=== PATIENT | male | born 1970 | race Two or more races ===

== ENCOUNTER → 2024-02-19 | Outpatient (CLI) | payer MEDICAID, SELFPAY ==
--- NOTE | 2024-02-19 15:07 | XR_ITS ---
Examination: Knee, right , 3 views Technique: Knee AP, lateral, oblique 3 views Date and time of exam: February 19, 2024 1516 hours INDICATIONS: Right knee pain joint popping beginning one month ago, patient fell on the knee one year ago. 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
== END | disposition home or self-care (01) ==
PROVIDERS: PCP Nurse Practitioner Family; Referring Provider Nurse Practitioner Family; Visit Provider Nurse Practitioner Family
DX: M17.11 Unilateral primary osteoarthritis, right knee (principal)
CPT/HCPCS: 73562

== ENCOUNTER 2024-06-11 02:36 | Emergency (ER) | payer MEDICAID, SELFPAY ==
[2024-06-11 02:37] VITALS: BMI 28.1
[2024-06-11 02:49] VITALS: BP 126/95; PULSE 72; RESP 17; TEMP 36.6; O2SAT 97
--- NOTE | 2024-06-11 03:32 | XR_ITS ---
Examination: PA chest single view TECHNIQUE: Upright PA chest single view Exam date and time: June 11, 2024 0339 hours INDICATIONS: Chest pain today FINDINGS: Normal heart size. Lungs are clear. Osseous structures are intact. IMPRESSION: No active disease
--- NOTE | 2024-06-11 03:34 | PD.EDRME ---
Rapid Medical Screening Exam [facility] Arrival date/time: 06/11/24 02:36 53M with history of DM presents to ED with several hours of L-sided coldness, lightheadedness, and sensation of something in throat. Possible SOB, but no pain. Patient denies URI symptoms. Chief Complaint: Dental/Oral/Throat Vital signs: Vital Signs Temperature 97.9 F 06/11/24 02:49 Pulse Rate 72 06/11/24 02:49 Respiratory Rate 17 06/11/24 02:49 Blood Pressure 126/95 H 06/11/24 02:49 Pulse Oximetry (%) 97 06/11/24 02:49 Oxygen Delivery Method Room Air 06/11/24 02:49
[2024-06-11 04:31] LABS: Basophils % (Auto) 0 % (0-2.5); Eosinophils # (Auto) 0.3 Thou/mm3 (0.0-0.5); Eosinophils % (Auto) 4 % (0-10); Hematocrit 41.9 % (41.0-53.0); Hemoglobin 12.9 g/dL (13.5-16.0); Immature Granulocytes % (Auto) 0 % (0-0); Immature Granulocytes Auto 0.01 Thou/mm3 (0.00-0.00); Lymphocytes # (Auto) 2.5 Thou/mm3 (1.0-4.8); Lymphocytes % (Auto) 37 % (10-50); Mean Corpuscular HGB Conc 30.8 g/dl (31.0-37.0); Mean Corpuscular Hemoglobin 26.4 pg (25.0-35.0); Mean Corpuscular Volume 86 fL (80-100); Monocytes # (Auto) 0.5 Thou/mm3 (0.0-0.8); Monocytes % (Auto) 8 % (0-12); Neutrophils # (Auto) 3.5 Thou/mm3 (1.8-7.7); Neutrophils % (Auto) 51 % (37-80); Nucleated Red Blood Cell % 0 /100 WBC (0); Platelet Count 215 Thou/mm3 (140-440); Red Blood Count 4.89 Miln/mm3 (4.50-5.90); White Blood Count 6.9 Thou/mm3 (3.8-10.6)
[2024-06-11 04:41] LABS: Amphetamine/Methamp Scrn,U Negative (Negative); Barbiturate Screen,Urine Negative (Negative); Benzodiazepines Screen,Urine Negative (Negative); Benzoylecgonine Screen, Ur Negative (Negative); Fentanyl Screen,Urine Negative (Negative); Opiate Screen,Urine Negative (Negative); THC Screen,Urine Negative (Negative)
[2024-06-11 05:33] LABS: Alanine Aminotransferase 24 U/L (10-49); Albumin, Serum 4.8 gm/dL (3.5-5.0); Albumin/Globulin Ratio 1.6 (1.2-2.2); Alkaline Phosphatase 78 U/L (46-116); Anion Gap 9 (7-16); Aspartate Amino Transferase 31 U/L (0-34); BUN/Creatinine Ratio 16 Ratio (12-20); Bilirubin,Total 0.6 mg/dL (0.3-1.2); Blood Urea Nitrogen 14 mg/dL (9-23); Carbon Dioxide 25.9 mMol/L (20.0-31.0); Chloride 106 mMol/L (98-107); Creatinine (Component) 0.9 mg/dL (0.6-1.3); Estimated Creatinine Clearance 99.3 mL/min (>60); Glucose 91 mg/dL (74-106); Osmolality,Calculated 281 (275-295); Potassium 4.1 mMol/L (3.4-5.1); Sodium 141 mMol/L (136-145); Total Protein 7.8 gm/dL (5.7-8.2); Troponin I < 0.020 ng/mL (0.0-0.045); eGFR > 60 See Note
[2024-06-11 05:50] LABS: Partial Thromboplastin Time 29.3 Seconds (22.0-36.0)
--- NOTE | 2024-06-11 07:59 | EDNOTE_ITS ---
ED Arrhythmia Palp. RME/HPI General Chief Complaint: Dental/Oral/Throat Stated Complaint: BODYACHES, SORE THROAT Time Seen by Provider: 06/11/24 07:49 Arrival date/time: 06/11/24 02:36 RME / HPI RME / HPI narrative: 06/11/24 02:36 53M with history of DM presents to ED with several hours of L-sided coldness, lightheadedness, and sensation of something in throat. Possible SOB, but no pain. Patient denies URI symptoms. DR. KAUFMAN MAIN ED EVALUATION: 53 year old male with history of diabetes presents to the ED for complaint of left sided chest coldness sensation, epigastric pressure sensation, and palpitations that woke him from sleep at 01:00 AM. Accompanied by nausea and cough. Denies any history of similar symptoms. Denies fevers, chills, sweats, shortness of breath, vomiting, or recent upper respiratory illness. Denies use of CPAP. 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 Quit 8 years ago. Related Data Home Medications ?Medication ?Instructions ?Recorded ?Confirmed No Known Home Medications 01/17/1805/05 Allergies Allergy/AdvReac Type Severity Reaction Status Date / Time codeine Allergy Mild RASH Verified 10/15/16 15:42 Review of Systems Review of Systems Narrative Review of Systems: Gen: No fever, no chills EYES: No discharge, no visual changes, no pain HEENT: No ear pain, no congestion, no sore throat PULM: no shortness of breath, + cough CV: +L sided coldness sensation, ?pain, +palpitations GI: +epigastric pressure sensation, +nausea, no vomiting, no diarrhea, no constipation : No frequency, no urgency,? no dysuria Musc/skel: No joint pain, no back pain Skin: No rash, no ecchymosis, no lesions Neuro: No weakness, no headache Past Medical History Past Medical History CARDIAC: Negative Congestive Heart Failure RESPIRATORY: Negative Chronic Obstructive Pulmonary Disease (COPD) GENITOURINARY: Negative Renal Disease ENDOCRINE: Negative Diabetes Mellitus Type 1 or Diabetes Mellitus Type 2 Social History SMOKING STATUS: Never smoker ED Exam Narrative Physical exam: GENERAL APPEARANCE: AxOx4, no obvious distress, nontoxic appearing HEENT: NC, AT. MMM. EOMI, clear conjunctiva, oropharynx clear. NECK: Supple. No stiffness or restricted ROM. HEART: Normal rate, normal S1/S1, no m/r/g LUNGS: CTAB, moving air well. No crackles or wheezes are heard. ABDOMEN: Soft, nontender, good bowel sounds heard. EXTREMITIES: Without cyanosis, clubbing or edema. MUSCULOSKELETAL: FROM of all major joints, no chest tenderness NEUROLOGICAL: Grossly nonfocal. Alert and oriented, moving all 4 extremities. CN not formally tested but appear grossly intact. Skin: Warm and dry without any rash. Course Course Course Narrative: chest xray ordered to help determine etiology of chest pain. Quality Measures none Orders Category Date Time Status Bedside COVID-19 Antigen Test NOW Care 06/11/24 03:35 Active Bedside Influenza A&B Antigen Test NOW Care 06/11/24 03:35 Completed EKG (ED ONLY) *Do not use* NOW Care 06/11/24 03:32 Completed EKG (ED Only) Stat Exams 06/11/24 03:32 Ordered XR chest 1V portable Stat Exams 06/11/24 03:32 Taken CBC Stat Lab 06/11/24 03:51 Completed Comprehensive Metabolic Panel Stat Lab 06/11/24 03:51 Completed Drug Screen,Urine Stat Lab 06/11/24 04:09 Completed INR [Prothrombin Time with INR] Stat Lab 06/11/24 03:51 Completed PTT [Partial Thromboplastin Time] Stat Lab 06/11/24 03:51 Completed Troponin I Stat Lab 06/11/24 03:51 Completed Troponin I Stat Lab 06/11/24 07:59 Ordered Reevaluation(s) Reevaluation #1: Patient remains clinically stable throughout the emergency department visit. We reviewed all the results, analysis, and treatment plans. Patient reports he was referred to have cardiac screening by PCP but missed his appointment. States he will follow up again with PCP. Patient is amenable to discharge. Strict return precautions were outlined. Patient was discharged in stable condition. Time: 10:45 Vital Signs Vital signs: Vital Signs Temperature 97.9 F 06/11/24 02:49 Pulse Rate 72 06/11/24 02:49 Respiratory Rate 17 06/11/24 02:49 Blood Pressure 126/95 H 06/11/24 02:49 Pulse Oximetry (%) 97 06/11/24 02:49 Oxygen Delivery Method Room Air 06/11/24 02:49 Arrhythmia/Palpitations MDM Narrative MDM Narrative:: Lupe Maggychapo Lewis am scribing for and in the presence of Dr. Kaufman. [facility] Patient data External records reviewed:: [facility] previous records Clinical information provided by:: patient Social determinants that could affect healthcare access:: none Patient has the following chronic illnesses:: Diabetes How is presenting disease/condition affected by chronic disease/condition?: exacerbated by Evaluation data The following diagnostics were reviewed and interpreted by me:: lab results, radiology exam(s) and EKG tracing(s) (Atrial fibrillation, HR 97, no acute ST or T-wave changes, no STEMI. ) Lab and/or radiology exams considered but not ordered:: None Interpretation Summary: Ordering Physician: Tulio Burks PA-C Date of Service: 06/11/24 Procedure(s): XR chest 1V portable Accession Number(s): [id number] cc: Nabil Bassett MD; Tulio Burks PA-C; Elly Shirley PA-C~ Examination: PA chest single view TECHNIQUE: Upright PA chest single view Exam date and time: June 11, 2024 0339 hours INDICATIONS: Chest pain today FINDINGS: Normal heart size. Lungs are clear. Osseous structures are intact. IMPRESSION: No active disease Dictated By:Nabil Bassett MD Signed By:<Electronically signed by Nabil Bassett MD in [place]>06/11/24 0904 Medications / Prescriptions Medications or Prescriptions considered but not ordered:: None Medication administrations:: None Consultations Consultation(s) initiated? (list below): No Diagnosis Differential diagnosis arrhythmia/palpitations: palpitations, anxiety, sinus tachycardia, artial fibrillation, artial flutter and supraventricular tachycardia Most likely diagnosis given after review of the tests above:: Atrial fibrillation, new onset Admission Indicated Admission indicated?: not indicated Admission Request Was there a request for admission?: No Disposition Plan Disposition Plan: Discharge Discharge Attestation Discharge Attestation: The patient and all family members were given an opportunity to ask questions and understood the discharge instructions. Discharge instructions specifically effects, indications for sooner follow up or return to the emergency department, and the expected course of current diagnosis. Patient condition: Stable Discharge Plan Plan Patient Disposition: HOME (Self Care) Prescriptions/Referrals Prescriptions/Med Rec: No Action No Known Home Medications Referrals: Elly Shirley PA-C [Primary Care Provider] - In 1 week Problem List Clinical Impression: Atrial fibrillation, new onset Patient/Caregiver Discharge Instructions Education Materials: ED Atrial Fibrillation Additional Instructions: Follow-up with your primary care doctor for further heart health testing, possible referral to cardiology. You can return to the emergency department sooner symptoms worsen or if you notice any new, concerning issues. Print Language: [place] Citizen Stand Alone Forms: [facility]enita Award Info., Patient Portal Info Letter
[2024-06-11 08:36] VITALS: BP 111/60; PULSE 64; RESP 18; TEMP 36.4; O2SAT 97
[2024-06-11 09:51] VITALS: BP 127/77; PULSE 85; RESP 16; TEMP 36.4; O2SAT 98
[2024-06-11 10:05] LABS: Troponin I < 0.020 ng/mL (0.0-0.045)
--- NOTE | 2024-06-11 10:41 | PC.NURSE ---
PT REPORTS THAT HE IS HAVING A LITTLE CHEST TIGHTNESS, DENIES ANY OTHER DISCOMFORT AT THIS TIME. PT IS A.FIB ON TELE, THIS IS A NEW RHYTHM FOR PT. FAMILY AT BEDSIDE ATTENTIVE TO PT.
[2024-06-11 11:09] VITALS: BP 106/81; PULSE 77; RESP 18; TEMP 36.4; O2SAT 95
== END 2024-06-11 11:11 | disposition home or self-care (01) ==
PROVIDERS: Physician Assistant; Emergency Provider Emergency Medicine; PCP Physician Assistant
DX: I48.91 Unspecified atrial fibrillation (principal); R07.9 Chest pain, unspecified
CPT/HCPCS: 36415; 71045; 80053; 80307; 84484; 85025; 85610; 85730; 87400; 87811; 93005; 99283

== ENCOUNTER → 2024-09-03 | Outpatient (CLI) | payer MEDICAID, SELFPAY ==
--- NOTE | 2024-09-03 15:28 | XR_ITS ---
Examination: Duplex scan of the lower extremity, unilateral left Date and time of exam: September 03, 2024, 1553 hours INDICATIONS: Left leg swelling and pain with discoloration one month Technique: Duplex scan of the extremity veins using B-mode/grayscale imaging and Doppler spectral analysis and color flow Attention is directed to internal echogenicity, compression and augmentation involving these veins, color flow assessment, spectral analysis Findings: Major deep venous structures in the extremity demonstrate normal course and caliber. There is no evidence of deep vein thrombosis. Normal color flow and spectral analysis Superficial varicosities at the area of concern Impression: Negative for DVT..
== END | disposition home or self-care (01) ==
PROVIDERS: PCP Physician Assistant; Referring Provider Physician Assistant; Visit Provider Physician Assistant
DX: L03.116 Cellulitis of left lower limb (principal); I87.2 Venous insufficiency (chronic) (peripheral)
CPT/HCPCS: 93971